=== PATIENT | male | born 1985 | race Caucasian/White ===

== ENCOUNTER 2019-05-26 14:48 | Emergency (ER) | payer OTHER ==
[~2019-05-26] VITALS: Ht 190.5 cm; Wt 87.5 kg
[2019-05-26 16:26] LABS: BASOPHILS 0.6 % (0.0-2.0); EOSINOPHILS 2.6 % (0.0-3.0); HEMATOCRIT 48.2 % (42.0-52.0); HEMOGLOBIN 16.4 gm/dL (14.0-18.0); LYMPHOCYTES 19.4 % (24.0-44.0); MCH 30.5 pg (26.0-34.0); MCHC 34.1 g/dL (28.0-37.0); MCV 89.4 fL (80.0-100.0); MONOCYTES 8.4 % (1.0-8.0); PLATELET COUNT 235 thou/uL (150-400); RBC 5.39 mil/uL (4.50-6.00); RDW 12.9 % (10.5-14.5); WBC 10.2 thou/uL (4.0-11.0)
[2019-05-26 16:37] LABS: ANION GAP 8 mmol/L (7-16); BUN 22 mg/dL (7-18); CALCIUM 9.6 mg/dL (8.5-10.1); CHLORIDE 100 mmol/L (98-107); CO2 29 mmol/L (21-32); CREATININE 1.3 mg/dL (0.7-1.3); GLUCOSE 102 mg/dL (74-106); POTASSIUM 3.8 mmol/L (3.5-5.1); SODIUM 137 mmol/L (136-145)
[2019-05-26 16:49] LABS: SGOT 20 U/L (15-37); SGPT 32 U/L (30-65); TOTAL BILIRUBIN 0.8 mg/dL (<0.1-1.0); TOTAL PROTEIN 8.3 g/dL (6.4-8.2); TROPONIN-I <0.06 ng/mL (<0.06)
[2019-05-26 16:55] LABS: ALBUMIN 4.1 g/dL (3.4-5.0)
[2019-05-26] MEDS ORDERED: PREDNISONE 10 M10 MG PO (17:06)
[2019-05-26] MEDS ORDERED: FLONASE 0.05%50 MCG NARES (17:06)
[2019-05-26] MEDS ORDERED: TESSALON PERLE100 M1 PO (17:06)
[2019-05-26] MEDS ORDERED: AUGMENTIN 875-1 EACH PO (17:06)
[2019-05-26] MEDS ORDERED: PROAIR HFA8.5 GM INH (17:06)
[2019-05-26 17:25] VITALS: BP 121/74
== END 2019-05-26 17:25 | disposition home or self-care (01) ==
LOC: ER 14:48
PROVIDERS: Physician Assistant
DX: J40 Bronchitis, not specified as acute or chronic (principal); R09.82 Postnasal drip; Z87.891 Personal history of nicotine dependence